=== PATIENT | female | born 1995 | race Caucasian/White ===

== ENCOUNTER 2017-11-17 14:17 | Outpatient (CLI) | payer OTHER ==
[2017-11-17 18:00] LABS: BASOPHILS # (AUTO) 0.1 10^3/uL (0.0-0.1); BASOPHILS % (AUTO) 0.5 %; EOSINOPHILS # (AUTO) 0.1 10^3/uL (0.0-0.7); EOSINOPHILS % (AUTO) 1.1 %; HGB - HEMOGLOBIN 12.7 g/dL (12.0-16.0); LYMPHOCYTES # (AUTO) 3.5 10^3/uL (1.5-3.5); MEAN CORPUSCULAR HGB CONC 33.3 g/dL (32.0-36.0); MEAN CORPUSCULAR VOLUME 87.2 fL (81.0-99.0); MEAN PLATELET VOLUME 8.3 fL (7.9-10.8); MONOCYTES # (AUTO) 0.7 10^3/uL (0.0-1.0); MONOCYTES % (AUTO) 6.1 %; NEUTROPHILS # (AUTO) 7.5 10^3/uL (1.5-6.6); NEUTROPHILS % (AUTO) 63.3 %; PLT - PLATELET COUNT 287 10^3/uL (130-450); RED BLOOD COUNT 4.38 10^6/uL (4.20-5.40); RED CELL DISTRIBUTION WIDTH 13.4 % (12.0-15.0); WHITE BLOOD COUNT 11.9 x10^3/uL (4.8-10.8)
[2017-11-17 18:30] LABS: ALBUMIN 4.5 g/dL (3.2-5.5); ALBUMIN/GLOBULIN RATIO 1.4 (1.0-2.2); BILIRUBIN,TOTAL 0.9 mg/dL (0.2-1.0); CALCIUM 9.2 mg/dL (8.5-10.3); CREATININE 0.7 mg/dL (0.4-1.0); TOTAL PROTEIN 7.7 g/dL (6.7-8.2)
[2017-11-17 18:35] LABS: FREE T3 4.27 pg/mL (2.5-3.9)
[2017-11-17 18:58] LABS: THYROID STIMULATING HORMONE 1.04 uIU/mL (0.34-5.60)
[2017-11-17 19:03] LABS: FREE T4 (FREE THYROXINE) 1.07 ng/dL (0.58-1.64)
[2017-11-17 19:04] LABS: PROLACTIN 14.56 ng/mL
[2017-11-17 19:26] LABS: FOLLICLE STIMULATING HORMONE 5.22 mIU/mL
[2017-11-17 19:27] LABS: LUTEINIZING HORMONE 10.72 mIU/mL
[2017-11-18 09:02] LABS: ESTRADIOL 80 pg/mL
[2017-11-19 20:38] LABS: DHEA SULFATE 334 mcg/dL (18-391)
[2017-11-20 14:51] LABS: ANTI MULLERIAN HORMONE ASSESSR 2.99 ng/mL
== END 2017-11-17 14:18 | disposition home or self-care (01) ==
LOC: LAB.F 14:17
PROVIDERS: ATTEND Naturopath
DX: N91.1 Secondary amenorrhea (principal)
CPT/HCPCS: 36415; 80053; 81599; 82627; 82670; 83001; 83002; 83520; 83540; 84146; 84270; 84403; 84439; 84443; 84466; 84481; 85025; 86376; 86800

== ENCOUNTER 2018-06-30 15:10 | Outpatient (CLI) | payer OTHER ==
[2018-06-30 18:12] LABS: HCG,QUALITATIVE BLOOD POSITIVE
[2018-06-30 18:30] LABS: % IRON SATURATION 25 % (20-50); IRON 82 ug/dL (28-170); TOTAL IRON BINDING CAPACITY 330 ug/dL (250-450); TRANSFERRIN 236 mg/dL (192-382)
== END 2018-06-30 15:11 | disposition home or self-care (01) ==
LOC: LAB.F 15:10
PROVIDERS: ATTEND Naturopath
DX: Z34.01 Encounter for supervision of normal first pregnancy, first trimester (principal)
CPT/HCPCS: 36415; 83540; 84439; 84443; 84466; 84481; 84702; 84703; 85027; 86850; 86900; 86901